=== PATIENT | female | born 1990 | race Caucasian/White ===

== ENCOUNTER 2016-11-15 10:09 | Day surgery (SDC) | payer MEDICAID ==
[2016-11-15] MEDS ORDERED: HYDROmorphone 0.5 MG/0.5 ML Syringe IVPUSH ONE ×2 (10:17→11:46)
[2016-11-15] MEDS ORDERED: Ondansetron 4 MG/2 ML SDV IVPUSH ONE (10:17)
[2016-11-15] MEDS ORDERED: Sodium Chloride 0.9% 1,000 ML IV SCH ×2 (10:30→11:45)
--- NOTE | 2016-11-15 11:02 | EDM.PDOC ---
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 She had some lite bleeding. The cramping was severe starting this am. Onset: Sudden Duration: Other ( This am. ) Location: Reports: Abdomen, Other ( Severe pelvic cramping. ) Associated Symptoms: Reports: Nausea/Vomiting, Other (pt had a bp of 80/60on arrival. ) Uterine Pain Score (Numeric/FACES): 10 - Related Data Allergies Allergy/AdvReac Type Severity Reaction Status Date / Time shellfish derived Allergy Anaphylactic Verified 11/15/16 10:44 Shock Home Meds: Home Meds Cyclobenzaprine HCl [Cyclobenzaprine HCl] 10 mg PO BEDTIME 03/29/15 [History] Famotidine [Take Home: Famotidine 20 MG, 3 Tab Pack] 20 mg PO DAILY PRN [History] Omeprazole Magnesium [Prilosec Otc] 20 mg PO DAILY PRN 03/29/15 [History] Past Medical History - Past Health History Medical/Surgical History: Denies Medical/Surgical History - Past Surgical History Other HEENT Surgeries/Procedures: tubes when she was a baby Social & Family History - Tobacco Use Smoking Status *Q: Current Every Day Smoker Years of Tobacco use: 9 Packs/Tins Daily: 0.5 - Alcohol Use Days Per Week of Alcohol Use: 0 - Recreational Drug Use Recreational Drug Use: No ED ROS GENERAL - Review of Systems Review Of Systems: See Below Constitutional: Reports: No Symptoms HEENT: Reports: No Symptoms Respiratory: Reports: No Symptoms Cardiovascular: Reports: No Symptoms Endocrine: Reports: No Symptoms GI/Abdominal: Reports: Abdominal Pain, Vomiting : Reports: No Symptoms, Other (pt has severe pelvic crmping. ) Musculoskeletal: Reports: No Symptoms Skin: Reports: No Symptoms ED EXAM, GI/ABD - Physical Exam Exam: See Below Text/Narrative:: pt has a missed ob with a set of twins that had a demise at 8 weeks. She had something that passed about 3 weeks ago and she is now bleeding and having severe cramping. She had an Us yesterday and today by comparison the sac is lower but not in the cervix. Exam Limited By: No Limitations General Appearance: Alert, Anxious, Severe Distress Ears: Normal TMs Nose: Normal Inspection Throat/Mouth: Normal Inspection Head: Atraumatic Neck: Normal Inspection Respiratory/Chest: No Respiratory Distress Cardiovascular: Regular Rate, Rhythm GI/Abdominal Exam: Other (pain in the lower abdoman. ) (Female) Exam: Deferred, Other (cervix remains closed. There is no visable tissue. ) Rectal (Female) Exam: Deferred Back Exam: Normal Inspection Extremities: Normal Inspection Neurological: Alert, Oriented, Normal Cognition Psychiatric: Anxious, Tearful Course - Vital Signs Last Recorded V/S: Last Vital Signs Temp 36.1 C 11/15/16 12:18 Pulse 53 L 11/15/16 12:18 Resp 16 11/15/16 12:18 BP 100/63 11/15/16 12:18 Pulse Ox 99 11/15/16 12:18 - Orders/Labs/Meds Orders: Active Orders 24 hr Category Date Time Status OB 1st Tri Sgl 1st Gest [US] Stat Exams 11/15/16 10:42 Taken RED BLOOD CELLS LP [BBK] Stat Lab 11/15/16 10:40 Received TYPE AND SCREEN [BBK] Stat Lab 11/15/16 10:40 Received Sodium Chloride 0.9% [Normal Saline] 1,000 ml Med 11/15/16 10:30 Active IV ASDIRECTED Sodium Chloride 0.9% [Normal Saline] 1,000 ml Med 11/15/16 11:45 Active IV ASDIRECTED Medication Orders Sodium Chloride (Normal Saline) 1,000 mls @ 999 mls/hr IV ASDIRECTED MIL Last Admin: 11/15/16 10:26 Dose: 999 mls/hr Sodium Chloride (Normal Saline) 1,000 mls @ 999 mls/hr IV ASDIRECTED MIL Last Admin: 11/15/16 11:53 Dose: 999 mls/hr Labs: Laboratory Tests 11/15/16 11/15/16 Range/Units 10:48 10:48 WBC 10.2 (4.5-11.0) K/uL RBC 3.96 (3.30-5.50) M/uL Hgb 12.4 (12.0-15.0) g/dL Hct 36.7 (36.0-48.0) % MCV 93 (80-98) fL MCH 31 (27-31) pg MCHC 34 (32-36) % Plt Count 222 (150-400) K/uL Neut % (Auto) 74 H (36-66) % Lymph % (Auto) 15 L (24-44) % [place] % (Auto) 9 H (2-6) % Eos % (Auto) 1 L (2-4) % Baso % (Auto) 1 (0-1) % Sodium 140 (140-148) mmol/L Potassium 3.2 L (3.6-5.2) mmol/L Chloride 106 (100-108) mmol/L Carbon Dioxide 22 (21-32) mmol/L Anion Gap 15.2 H (5.0-14.0) mmol/L BUN 6 L (7-18) mg/dL Creatinine 0.7 (0.6-1.0) mg/dL Est Cr Clr Drug Dosing 100.74 mL/min Estimated GFR (MDRD) > 60 (>60) Glucose 113 H (74-106) mg/dL Calcium 8.8 (8.5-10.1) mg/dL Total Bilirubin 0.8 (0.2-1.0) mg/dL AST 12 L (15-37) U/L ALT 11 L (12-78) U/L Alkaline Phosphatase 41 L (46-116) U/L Total Protein 7.0 (6.4-8.2) g/dL Albumin 3.8 (3.4-5.0) g/dL Globulin 3.2 (2.3-3.5) g/dL Albumin/Globulin Ratio 1.2 (1.2-2.2) Meds: Medications Generic Name Dose Route Start Last Admin Trade Name Freq PRN Reason Stop Dose Admin Sodium Chloride 1,000 mls @ 999 mls/hr 11/15/16 10:30 11/15/16 10:26 Normal Saline IV 999 mls/hr ASDIRECTED MIL Administration Sodium Chloride 1,000 mls @ 999 mls/hr 11/15/16 11:45 11/15/16 11:53 Normal Saline IV 999 mls/hr ASDIRECTED IML Administration Discontinued Medications Generic Name Dose Route Start Last Admin Trade Name Freq PRN Reason Stop Dose Admin Hydromorphone HCl 0.5 mg 11/15/16 10:17 11/15/16 10:27 Dilaudid IVPUSH 11/15/16 10:18 0.5 mg ONETIME ONE Administration Hydromorphone HCl 0.5 mg 11/15/16 11:46 11/15/16 11:53 Dilaudid IVPUSH 11/15/16 11:47 0.5 mg ONETIME ONE Administration Ondansetron HCl 4 mg 11/15/16 10:17 11/15/16 10:27 Zofran IVPUSH 11/15/16 10:18 4 mg ONETIME ONE Administration - Re-Assessments/Exams Free Text/Narrative Re-Assessment/Exam: 11/15/16 11:56 Pt has a normal hg. Her other labs are normal. 11/15/16 12:10 She is a rh pos. Dr Covington was called and he will come and see pt. If indicated he will plan o do a D and c. Departure - Departure Time of Disposition: 12:37 Disposition: Admitted As Inpatient 66 Condition: Fair Clinical Impression: Missed with demise before 20 completed weeks of gestation - Discharge Information - My Orders Last 24 Hours: My Active Orders 11/15/16 10:30 Sodium Chloride 0.9% [Normal Saline] 1,000 ml IV ASDIRECTED 11/15/16 10:40 RED BLOOD CELLS LP [BBK] Stat TYPE AND SCREEN [BBK] Stat 11/15/16 10:42 OB 1st Tri Sgl 1st Gest [US] Stat 11/15/16 11:45 Sodium Chloride 0.9% [Normal Saline] 1,000 ml IV ASDIRECTED - Assessment/Plan Last 24 Hours: My Active Orders 11/15/16 10:30 Sodium Chloride 0.9% [Normal Saline] 1,000 ml IV ASDIRECTED 11/15/16 10:40 RED BLOOD CELLS LP [BBK] Stat TYPE AND SCREEN [BBK] Stat 11/15/16 10:42 OB 1st Tri Sgl 1st Gest [US] Stat 11/15/16 11:45 Sodium Chloride 0.9% [Normal Saline] 1,000 ml IV ASDIRECTED
--- NOTE | 2016-11-15 12:56 | US ---
OB ultrasound Comparison: Previous day. There continues to be a gestational sac with an irregular contour. The sac is demonstrated lower wit hin the endometrial cavity. There is a pole remnant. Impression: 1. Nonliving gestation. Impending spontaneous .
[2016-11-15] MEDS ORDERED: Oxytocin 10 Units/1 ML SDV ONE (13:43)
[2016-11-15] MEDS ORDERED: Bupivacaine 0.25% 10 ML SDV ONE (13:57)
[2016-11-15] MEDS ORDERED: Ondansetron 4 MG/2 ML SDV ONE (14:06)
[2016-11-15] MEDS ORDERED: Dexamethasone 4 MG/ML SDV ONE (14:06)
[2016-11-15] MEDS ORDERED: Propofol 200 MG/20 ML SDV ONE (14:06)
[2016-11-15] MEDS ORDERED: fentaNYL 100 MCG/2 ML SDV ONE (14:06)
[2016-11-15] MEDS ORDERED: Sodium Chloride 0.9% 10 ML ONE (14:07)
[2016-11-15] MEDS ORDERED: ceFAZolin 1 GM Vial ONE (14:07)
[2016-11-15] MEDS ORDERED: Glycopyrrolate 0.2 MG/ML 2 ML SDV ONE (14:34)
[2016-11-15 15:57] VITALS: BP 110/62
== END 2016-11-15 16:10 | disposition home or self-care (01) ==
LOC: JP.ED 10:09 → JP.SDS 12:06
PROVIDERS: ATTEND Obstetrics & Gynecology
DX: O03.4 Incomplete spontaneous abortion without complication (principal); Z91.013 Allergy to seafood; Z79.899 Other long term (current) drug therapy; F17.210 Nicotine dependence, cigarettes, uncomplicated; Z98.890 Other specified postprocedural states
CPT/HCPCS: 36415; 59812; 76801; 80053; 85025; 86850; 86900; 86901; 86920; 86922; 96361; 96374; 96375; 96376; 99285; J0690; J1100; J1170; J2405; J2590; J2704; J3010; J7040; J7050; 88305; J3490

== ENCOUNTER 2018-12-15 14:11 | Emergency (ER) | payer MEDICAID ==
--- NOTE | 2018-12-15 16:53 | EDM.PDOC ---
ED HPI GENERAL MEDICAL PROBLEM - General Chief Complaint: ENT Problem Stated Complaint: SWOLLEN LIPS, THROAT FEELS FUNNY Time Seen by Provider: 12/15/18 15:42 Source of Information: Reports: Patient, RN Notes Reviewed History Limitations: Reports: No Limitations - History of Present Illness INITIAL COMMENTS - FREE TEXT/NARRATIVE: 28-year-old female presents emergency department today complaint of swollen lips and scratchy throat, this happened earlier in the day after she awoke this morning at this time HER symptoms not resolve she did take Benadryl at home. 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 - Infectious Disease History Infectious Disease History: Reports: C-Difficile - Past Surgical History Other HEENT Surgeries/Procedures: tubes when she was a baby Social & Family History - Family History Family Medical History: Noncontributory - Tobacco Use Smoking Status *Q: Current Every Day Smoker Years of Tobacco use: 12 Packs/Tins Daily: 0.5 - Caffeine Use Caffeine Use: Reports: Energy Drinks, Soda - Recreational Drug Use Recreational Drug Use: No ED ROS ENT - Review of Systems Review Of Systems: See Below Constitutional: Reports: No Symptoms HEENT: Reports: Throat Swelling, Other (Lip swelling) Respiratory: Reports: No Symptoms Cardiovascular: Reports: No Symptoms GI/Abdominal: Reports: No Symptoms ED EXAM, ENT - Physical Exam Exam: See Below Exam Limited By: No Limitations General Appearance: Alert, WD/WN, No Apparent Distress Mouth/Throat: Normal Inspection, Normal Gums, Normal Lips, Normal Oropharynx, Normal Teeth Neck: Normal Inspection, Supple, Non-Tender, Full Range of Motion Respiratory/Chest: No Respiratory Distress, Lungs Clear, Normal Breath Sounds, No Accessory Muscle Use, Chest Non-Tender Cardiovascular: No Murmur Course - Vital Signs Last Recorded V/S: Last Vital Signs Temp 96.4 F 12/15/18 15:38 Pulse 76 12/15/18 15:38 Resp 12 12/15/18 15:38 BP 105/67 12/15/18 15:38 Pulse Ox 100 12/15/18 15:26 Departure - Departure Time of Disposition: 16:52 Disposition: Home, Self-Care 01 Condition: Good Clinical Impression: Allergic reaction Qualifiers: Encounter type: initial encounter Qualified Code(s): T78.40XA - Allergy, unspecified, initial encounter - Discharge Information Referrals: Reuben Griggs MD [Primary Care Provider] - Additional Instructions: Continue to use Benadryl as needed for symptomatically relief, Please followup with your primary care provider in 3-5 days if not better, please call return to the emergency department with worsening of symptoms. - Assessment/Plan Plan: Assessment Acuity = acute Site and laterality = allergic reaction Etiology = unknown etiology] Manifestations = none Location of injury = Home Lab values = [none Plan Continue using Benadryl as needed for symptomatic relief follow-up primary care 3-5 days if no improvement This note was dictated using [employer] voice recognition software please call with any questions on syntax or grammar.
[2018-12-15 17:03] VITALS: BP 101/65
== END 2018-12-15 17:03 | disposition home or self-care (01) ==
LOC: JP.ED 14:11
DX: T78.40XA Allergy, unspecified, initial encounter (principal); F17.210 Nicotine dependence, cigarettes, uncomplicated; Z91.013 Allergy to seafood
CPT/HCPCS: 99283

== ENCOUNTER 2019-02-02 15:25 | Emergency (ER) | payer MEDICAID ==
[2019-02-02 15:57] VITALS: BP 111/70; PULSE 66
--- NOTE | 2019-02-02 16:24 | EDM.PDOC ---
ED HPI GENERAL MEDICAL PROBLEM - General Chief Complaint: General Stated Complaint: LIGHT HEADED, COLD CHILLS Time Seen by Provider: 02/02/19 15:50 Source of Information: Reports: Patient History Limitations: Reports: No Limitations - History of Present Illness INITIAL COMMENTS - FREE TEXT/NARRATIVE: 28 yo female presents to the ER with 6 days of nasal congestion, facial pressure and sore throat. This afternoon woke with fever and chills. 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 - Infectious Disease History Infectious Disease History: Reports: C-Difficile - Past Surgical History Other HEENT Surgeries/Procedures: tubes when she was a baby Social & Family History - Family History Family Medical History: Noncontributory - Tobacco Use Smoking Status *Q: Current Every Day Smoker Years of Tobacco use: 10 Packs/Tins Daily: 0.5 - Caffeine Use Caffeine Use: Reports: Energy Drinks, Soda ED ROS GENERAL - Review of Systems Review Of Systems: See Below Constitutional: Reports: Fever, Fatigue HEENT: Reports: Sinus Problem Respiratory: Reports: Cough. Denies: Shortness of Breath, Wheezing Cardiovascular: Denies: Chest Pain GI/Abdominal: Denies: Abdominal Pain ED EXAM, GENERAL - Physical Exam Exam: See Below Exam Limited By: No Limitations General Appearance: Alert, WD/WN, No Apparent Distress Eye Exam: Bilateral Eye: PERRL Ears: Normal External Exam, Normal Canal, Hearing Grossly Normal, Normal TMs Nose: No Blood, Clear Rhinorrhea Throat/Mouth: Normal Teeth, Normal Gums, Inflammation. No: Dysphagia Head: Atraumatic, Normocephalic Respiratory/Chest: No Respiratory Distress, Lungs Clear, Normal Breath Sounds, No Accessory Muscle Use, Chest Non-Tender Cardiovascular: Normal Peripheral Pulses, Regular Rate, Rhythm, No Edema GI/Abdominal: Normal Bowel Sounds, Soft, Non-Tender Neurological: Alert, Oriented Psychiatric: Normal Affect, Normal Mood Skin Exam: Warm, Dry, Intact, Normal Color, No Rash Course - Vital Signs Last Recorded V/S: Last Vital Signs Temp 36.9 C 02/02/19 15:56 Pulse 66 02/02/19 15:56 Resp 14 02/02/19 15:56 BP 111/70 02/02/19 15:56 Pulse Ox 97 02/02/19 15:56 Departure - Departure Time of Disposition: 16:23 Disposition: Home, Self-Care 01 Condition: Good Clinical Impression: Sinusitis, acute Qualifiers: Sinusitis location: unspecified location Recurrence: non-recurrent Qualified Code(s): J01.90 - Acute sinusitis, unspecified - Discharge Information *PRESCRIPTION DRUG MONITORING PROGRAM REVIEWED*: Not Applicable *COPY OF PRESCRIPTION DRUG MONITORING REPORT IN PATIENT HILDA: Not Applicable Instructions: Sinusitis, Adult, [id number] Referrals: Reuben Griggs MD [Primary Care Provider] - Additional Instructions: augmentin 500 mg twice daily for 5 days increase fluid intake with goal of 2 liters per day rest
== END 2019-02-02 16:34 | disposition home or self-care (01) ==
LOC: JP.ED 15:25
DX: J01.90 Acute sinusitis, unspecified (principal); F17.210 Nicotine dependence, cigarettes, uncomplicated; Z91.013 Allergy to seafood
CPT/HCPCS: 99283

== ENCOUNTER 2019-03-30 14:55 | Emergency (ER) | payer MEDICAID ==
[2019-03-30 15:09] VITALS: BP 106/58; PULSE 73
--- NOTE | 2019-03-30 15:42 | EDM.PDOC ---
ED HPI GENERAL MEDICAL PROBLEM - General Chief Complaint: Gastrointestinal Problem Stated Complaint: BLOOD IN VOMIT Time Seen by Provider: 03/30/19 15:15 Source of Information: Reports: Patient History Limitations: Reports: No Limitations - History of Present Illness INITIAL COMMENTS - FREE TEXT/NARRATIVE: 28-year-old female with chronic acid reflux has had intermittent nausea for the past 5 days. Today she woke up for work and was about ready to go and became fairly nauseated and had one emesis that looked red. She was concerned she may be vomiting blood so came in. She has no significant pain, no diarrhea, no dark stools. 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 - Infectious Disease History Infectious Disease History: Reports: C-Difficile - Past Surgical History Other HEENT Surgeries/Procedures: tubes when she was a baby Social & Family History - Family History Family Medical History: Noncontributory - Tobacco Use Smoking Status *Q: Current Every Day Smoker Years of Tobacco use: 14 Packs/Tins Daily: 0.5 - Caffeine Use Caffeine Use: Reports: Coffee - Recreational Drug Use Recreational Drug Use: No ED ROS GENERAL - Review of Systems Review Of Systems: See Below Constitutional: Reports: Malaise. Denies: Fever, Chills HEENT: Denies: Throat Pain Respiratory: Denies: Shortness of Breath, Cough Cardiovascular: Denies: Chest Pain GI/Abdominal: Reports: Hematemesis, Nausea, Vomiting. Denies: Abdominal Pain : Reports: No Symptoms Skin: Reports: No Symptoms Neurological: Denies: Headache Psychiatric: Reports: No Symptoms Hematologic/Lymphatic: Denies: Anemia Free Text/Narrative/Comment: Denies the possibility of being , she is not sexually active at this time. ED EXAM, GENERAL - Physical Exam Exam: See Below Exam Limited By: No Limitations General Appearance: Alert, No Apparent Distress Eye Exam: Bilateral Eye: Normal Inspection Head: Atraumatic Respiratory/Chest: No Respiratory Distress, Lungs Clear Cardiovascular: Regular Rate, Rhythm. No: Tachycardia GI/Abdominal: Normal Bowel Sounds, Soft, Non-Tender Neurological: Alert, Oriented Psychiatric: Normal Affect, Normal Mood Skin Exam: Warm, Dry Course - Vital Signs Last Recorded V/S: Last Vital Signs Temp 98.5 F 03/30/19 15:19 Pulse 73 03/30/19 15:19 Resp 18 03/30/19 15:19 BP 106/58 L 03/30/19 15:19 Pulse Ox 99 03/30/19 15:19 - Orders/Labs/Meds Labs: Laboratory Tests 03/30/19 03/30/19 Range/Units 15:47 15:47 WBC 6.7 (4.5-11.0) K/uL RBC 4.47 (3.30-5.50) M/uL Hgb 13.8 (12.0-15.0) g/dL Hct 41.5 (36.0-48.0) % MCV 93 (80-98) fL MCH 31 (27-31) pg MCHC 33 (32-36) % Plt Count 295 (150-400) K/uL Neut % (Auto) 51 (36-66) % Lymph % (Auto) 33 (24-44) % [place] % (Auto) 12 H (2-6) % Eos % (Auto) 3 (2-4) % Baso % (Auto) 0 (0-1) % Sodium 138 L (140-148) mmol/L Potassium 4.1 (3.6-5.2) mmol/L Chloride 103 (100-108) mmol/L Carbon Dioxide 25 (21-32) mmol/L Anion Gap 14.1 H (5.0-14.0) mmol/L BUN 13 D (7-18) mg/dL Creatinine 0.7 (0.6-1.0) mg/dL Est Cr Clr Drug Dosing 90.10 mL/min Estimated GFR (MDRD) > 60 (>60) Glucose 110 H (74-106) mg/dL Calcium 9.0 (8.5-10.1) mg/dL Total Bilirubin 0.5 (0.2-1.0) mg/dL AST 15 (15-37) U/L ALT 20 D (12-78) U/L Alkaline Phosphatase 52 (46-116) U/L Total Protein 7.5 (6.4-8.2) g/dL Albumin 4.2 (3.4-5.0) g/dL Globulin 3.3 (2.3-3.5) g/dL Albumin/Globulin Ratio 1.3 (1.2-2.2) Lipase 108 (73-393) U/L - Re-Assessments/Exams Free Text/Narrative Re-Assessment/Exam: 03/30/19 15:41 Physical exam is negative, CBC CMP and lipase were obtained. 03/30/19 16:24 Patient was in the emergency room for an hour and showed no signs of emesis or nausea. Her labs are all normal. She was offered some Zofran but states she did not "think she needed it". She will recheck in the next several days if she develops dark stools or continues to throw up what appears to be blood or develops any other concerns. Departure - Departure Time of Disposition: 16:35 Disposition: Home, Self-Care 01 Clinical Impression: Nausea & vomiting Qualifiers: Vomiting type: unspecified Vomiting Intractability: non-intractable Qualified Code(s): R11.2 - Nausea with vomiting, unspecified - Discharge Information Instructions: Nausea and Vomiting, Adult Referrals: PCP,None [Primary Care Provider] - Forms: ED Department Discharge Care Plan Goals: Increase diet and activity as tolerated. Return for recheck if nausea and vomiting persists especially if you appear to be throwing up blood. Also recheck if you develop dark stools.
== END 2019-03-30 16:35 | disposition home or self-care (01) ==
LOC: JP.ED 14:55
DX: R11.2 Nausea with vomiting, unspecified (principal); F17.210 Nicotine dependence, cigarettes, uncomplicated; Z91.013 Allergy to seafood
CPT/HCPCS: 36415; 80053; 83690; 85025; 99283

== ENCOUNTER 2019-08-14 21:50 | Emergency (ER) | payer MEDICAID ==
[2019-08-14 22:02] VITALS: BP 107/70; PULSE 86
--- NOTE | 2019-08-14 22:39 | EDM.PDOC ---
ED HPI GENERAL MEDICAL PROBLEM - General Chief Complaint: Lower Extremity Injury/Pain Stated Complaint: INJURED LEFT FOOT Time Seen by Provider: 08/14/19 22:30 Source of Information: Reports: Patient, RN Notes Reviewed History Limitations: Reports: No Limitations - History of Present Illness INITIAL COMMENTS - FREE TEXT/NARRATIVE: 28-year-old female presents emergency department with a complaint of pain in her left foot unfortunately she dropped a piano on the distal aspect of her foot encompassing digits 3 4 and 5, she does have pain with ambulation she does have bruising injury happened approximately 2 hours prior, complains of numbness and tingling in the distal aspect of the toes difficult for her to move digits 3 4 and 5 secondary to pain 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 Left Foot Pain Score (Numeric/FACES): 8 - Related Data Allergies Allergy/AdvReac Type Severity Reaction Status Date / Time shellfish derived Allergy Severe Anaphylactic Verified 08/14/19 22:15 Shock Penicillins Allergy Airway Verified 08/14/19 22:15 Tightness Home Meds: Home Meds diphenhydrAMINE [Benadryl] 25 mg PO BID PRN 08/14/19 [History] Past Medical History HEENT History: Reports: Allergic Rhinitis Gastrointestinal History: Reports: Other (See Below) Other Gastrointestinal History: acid reflux 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 Musculoskeletal History: Reports: Fracture Neurological History: Reports: Migraines - Infectious Disease History Infectious Disease History: Reports: Chicken Pox - Past Surgical History HEENT Surgical History: Reports: Myringotomy w Tube(s), Other (See Below) Other HEENT Surgeries/Procedures: tubes when she was a baby Female Surgical History: Reports: D&C Social & Family History - Family History Family Medical History: Noncontributory - Tobacco Use Smoking Status *Q: Current Every Day Smoker Years of Tobacco use: 14 Packs/Tins Daily: 0.4 - Caffeine Use Caffeine Use: Reports: Coffee - Recreational Drug Use Recreational Drug Use: No Review of Systems - Review of Systems Review Of Systems: See Below Musculoskeletal: Reports: Foot Pain Skin: Reports: Bruising ED EXAM, GENERAL - Physical Exam Exam: See Below Free Text/Narrative:: Examination the left foot I do appreciate some bruising over the metatarsals 3 4 and 5 there is some deformity noted as well very tender to the touch she states she has no movement in digits 3 4 and 5 she can slightly move digit #1 she states she has no sensation in digits 3 4 and 5 but has sensation in digit # 1 Exam Limited By: No Limitations General Appearance: Alert, WD/WN, No Apparent Distress Course - Vital Signs Last Recorded V/S: Last Vital Signs Temp 99.0 F 08/14/19 22:17 Pulse 86 08/14/19 22:17 Resp 16 08/14/19 22:17 BP 107/70 08/14/19 22:17 Pulse Ox 99 08/14/19 22:17 - Orders/Labs/Meds Orders: Active Orders 24 hr Category Date Time Status Foot Comp Min 3V Lt [CR] Stat Exams 08/14/19 22:32 Taken Departure - Departure Time of Disposition: 23:29 Disposition: Home, Self-Care 01 Condition: Fair Clinical Impression: Contusion of left foot Qualifiers: Encounter type: initial encounter Qualified Code(s): S90.32XA - Contusion of left foot, initial encounter - Discharge Information Instructions: Foot Contusion, [id number] Referrals: PCP,None [Primary Care Provider] - Forms: ED Department Discharge Additional Instructions: Use ibuprofen for baseline pain control use hydrocodone for breakthrough pain, please followup with your primary care provider in 3-5 days if not better, please call return to the emergency department with worsening of symptoms. Sepsis Event Note - Evaluation Sepsis Screening Result: No Definite Risk - Focused Exam Vital Signs: Vital Signs Temp Pulse Resp BP Pulse Ox 08/14/19 22:17 99.0 F 86 16 107/70 99 08/14/19 22:00 99.0 F 86 16 107/70 99 Date Exam was Performed: 08/14/19 Time Exam was Performed: 23:27 - My Orders Last 24 Hours: My Active Orders 08/14/19 22:32 Foot Comp Min 3V Lt [CR] Stat - Assessment/Plan Last 24 Hours: My Active Orders 08/14/19 22:32 Foot Comp Min 3V Lt [CR] Stat Plan: Assessment Acuity = acute Site and laterality = contusion left foot Etiology = secondary to trauma Manifestations = none Location of injury = Home Lab values = foot x-ray I did review films myself I cannot appreciate any acute process, the official read from radiology is pending Plan I did review films with her we will contact her if the radiology read differs from what she has been told she is placed in a walking boot for comfort hydrocodone 5/325 1 tab p.o. 3 times daily PRN total #10 provided for pain control follow-up primary care 3 to 5 days if no improvement This note was dictated using [email or web address] recognition software please call with any questions on syntax or grammar.
--- NOTE | 2019-08-15 11:17 | CR ---
Foot Comp Min 3V Lt CLINICAL HISTORY: Pain FINDINGS: There is no acute fracture or dislocation within the foot. No destructive changes are present. IMPRESSION: No acute bony process.
== END 2019-08-14 23:45 | disposition home or self-care (01) ==
LOC: JP.ED 21:50
DX: S90.32XA Contusion of left foot, initial encounter (principal); Z88.0 Allergy status to penicillin; Z91.013 Allergy to seafood; F17.210 Nicotine dependence, cigarettes, uncomplicated; X58.XXXA Exposure to other specified factors, initial encounter
CPT/HCPCS: 73630-26-LT; 73630-LT; 99283-25

== ENCOUNTER 2019-09-30 16:49 | Emergency (ER) | payer MEDICAID ==
[2019-09-30 17:25] VITALS: BP 109/64; PULSE 77
--- NOTE | 2019-09-30 18:18 | EDM.PDOC ---
ED HPI GENERAL MEDICAL PROBLEM - General Chief Complaint: Respiratory Problem Time Seen by Provider: 09/30/19 17:30 Source of Information: Reports: Patient History Limitations: Reports: No Limitations - History of Present Illness INITIAL COMMENTS - FREE TEXT/NARRATIVE: 29-year-old female with bronchitis-like symptoms for the past week, cough is becoming more productive and she is running intermittent fevers. She was checked for COVID-19 and it was negative. She is a smoker. Onset: Gradual Duration: Day(s): (Symptoms for the last 7 days) Associated Symptoms: Reports: Cough, Fever/Chills, Malaise. Denies: Chest Pain - Related Data Allergies Allergy/AdvReac Type Severity Reaction Status Date / Time shellfish derived Allergy Severe Anaphylactic Verified 09/30/19 17:25 Shock Penicillins Allergy Airway Verified 09/30/19 17:25 Tightness Home Meds: Home Meds diphenhydrAMINE [Benadryl] 25 mg PO BID PRN 08/14/19 [History] Omeprazole Magnesium [Prilosec Otc] 20 mg PO DAILY 09/30/19 [History] Past Medical History - Past Health History Medical/Surgical History: Denies Medical/Surgical History HEENT History: Reports: Allergic Rhinitis Gastrointestinal History: Reports: GERD, Other (See Below) Other Gastrointestinal History: acid reflux 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 Musculoskeletal History: Reports: Fracture Neurological History: Reports: Migraines - Infectious Disease History Infectious Disease History: Reports: Chicken Pox - Past Surgical History HEENT Surgical History: Reports: Myringotomy w Tube(s), Other (See Below) Other HEENT Surgeries/Procedures: tubes when she was a baby Female Surgical History: Reports: D&C Social & Family History - Family History Family Medical History: Noncontributory - Tobacco Use Smoking Status *Q: Current Every Day Smoker Years of Tobacco use: 15 Packs/Tins Daily: 0.5 - Caffeine Use Caffeine Use: Reports: Coffee - Recreational Drug Use Recreational Drug Use: No ED ROS GENERAL - Review of Systems Review Of Systems: See Below Constitutional: Reports: Fever, Chills, Malaise HEENT: Denies: Throat Pain Respiratory: Reports: Cough, Sputum. Denies: Shortness of Breath Cardiovascular: Denies: Chest Pain GI/Abdominal: Denies: Nausea, Vomiting Skin: Reports: No Symptoms Neurological: Denies: Headache Psychiatric: Reports: No Symptoms ED EXAM, GENERAL - Physical Exam Exam: See Below Exam Limited By: No Limitations General Appearance: Alert, No Apparent Distress Head: Atraumatic Neck: Normal Inspection Respiratory/Chest: No Respiratory Distress, Lungs Clear Cardiovascular: Regular Rate, Rhythm Neurological: Alert, Oriented Psychiatric: Normal Affect, Normal Mood Skin Exam: Warm, Dry Course - Vital Signs Last Recorded V/S: Last Vital Signs Temp 97.7 F 09/30/19 17:25 Pulse 77 09/30/19 17:25 Resp 16 09/30/19 17:25 BP 109/64 09/30/19 17:25 Pulse Ox 100 09/30/19 17:25 - Re-Assessments/Exams Free Text/Narrative Re-Assessment/Exam: 09/30/19 18:50 Patient will be covered for atypical bronchitis with a course of Zithromax, and will be off work until symptoms resolve. She can return if worsening despite treatment. Departure - Departure Time of Disposition: 18:25 Disposition: Home, Self-Care 01 Clinical Impression: Bronchitis - Discharge Information Instructions: Acute Bronchitis, Adult, [id number] Referrals: Reuben Griggs MD [Primary Care Provider] - Forms: ED Department Discharge Care Plan Goals: Take Zithromax for 5 days as prescribed, rest fluids and increase activity as tolerated. Return if worsening despite treatment. Sepsis Event Note - Evaluation Sepsis Screening Result: No Definite Risk - Focused Exam Vital Signs: Vital Signs Temp Pulse Resp BP Pulse Ox 09/30/19 17:25 97.7 F 77 16 109/64 100 09/30/19 17:23 97.7 F 77 16 109/64 100 Date Exam was Performed: 09/30/19 Time Exam was Performed: 18:49
== END 2019-09-30 18:25 | disposition home or self-care (01) ==
LOC: JP.ED 16:49
DX: J40 Bronchitis, not specified as acute or chronic (principal); Z79.899 Other long term (current) drug therapy; K21.9 Gastro-esophageal reflux disease without esophagitis; F17.210 Nicotine dependence, cigarettes, uncomplicated; Z91.013 Allergy to seafood; Z88.0 Allergy status to penicillin
CPT/HCPCS: 99283

== ENCOUNTER 2021-03-02 22:06 | Emergency (ER) | payer MEDICAID ==
[2021-03-02 22:31] VITALS: BP 116/59; PULSE 73
--- NOTE | 2021-03-02 22:32 | EDM.PDOC ---
ED HPI GENERAL MEDICAL PROBLEM - General Chief Complaint: ENT Problem Stated Complaint: L EAR PAIN Time Seen by Provider: 03/02/21 22:22 Source of Information: Reports: Patient History Limitations: Reports: No Limitations - History of Present Illness INITIAL COMMENTS - FREE TEXT/NARRATIVE: Rochelle is a 30-year-old female presenting to the ED for evaluation of left ear pain and bloody discharge. She had acute onset of ear pain around 1900 hrs. tonight and went to bed around 2100 hrs. She woke up at 2200 hrs. with the sensation of a pop in her ear and blood coming from the ear canal. She has been dealing with some nasal congestion and rhinorrhea. He denies any fever, chills, sore throat, difficulty swallowing, shortness of breath or cough, nausea or vomiting. She does have a slight headache. She does have nasal congestion. Left Ear Pain Score (Numeric/FACES): 8 - Related Data Allergies Allergy/AdvReac Type Severity Reaction Status Date / Time shellfish derived Allergy Severe Anaphylactic Verified 03/02/21 22:17 Shock Penicillins Allergy Airway Verified 03/02/21 22:17 Tightness Home Meds: Home Meds Omeprazole Magnesium [Prilosec Otc] 20 mg PO ASDIRECTED PRN 09/30/19 [History] Doxepin HCl [Doxepin] 10 mg PO ASDIRECTED 03/02/21 [History] medroxyPROGESTERone Acetate [Medroxyprogesterone Acetate] 1 tab PO ASDIRECTED 03/02/21 [History] Past Medical History - Past Health History Medical/Surgical History: Denies Medical/Surgical History HEENT History: Reports: Allergic Rhinitis Gastrointestinal History: Reports: GERD, Other (See Below) Other Gastrointestinal History: acid reflux 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 Musculoskeletal History: Reports: Fracture Neurological History: Reports: Migraines - Infectious Disease History Infectious Disease History: Reports: Chicken Pox - Past Surgical History HEENT Surgical History: Reports: Myringotomy w Tube(s), Other (See Below) Other HEENT Surgeries/Procedures: tubes when she was a baby Female Surgical History: Reports: D&C Social & Family History - Family History Family Medical History: No Pertinent Family History - Caffeine Use Caffeine Use: Reports: Coffee ED ROS ENT - Review of Systems Review Of Systems: See Below Constitutional: Reports: No Symptoms HEENT: Reports: Ear Discharge (Left ear bloody discharge), Ear Pain (Left ear), Rhinitis, Sinus Problem Respiratory: Reports: No Symptoms Cardiovascular: Reports: No Symptoms Endocrine: Reports: No Symptoms GI/Abdominal: Reports: No Symptoms : Reports: No Symptoms Musculoskeletal: Reports: No Symptoms Skin: Reports: No Symptoms Neurological: Reports: Headache (Mild) Psychiatric: Reports: No Symptoms Hematologic/Lymphatic: Reports: No Symptoms Immunologic: Reports: No Symptoms ED EXAM, ENT - Physical Exam Exam: See Below Exam Limited By: No Limitations General Appearance: Alert, Mild Distress Eye Exam: Bilateral Eye: EOMI, PERRL Ears: Canal Blood, Canal Swelling, TM Fluid (Right), TM Perforation (Left) Nose: Nasal Discharge, Nasal Swelling Mouth/Throat: Normal Inspection, Normal Gums Head: Atraumatic, Normocephalic Neck: Normal Inspection, Supple. No: Lymphadenopathy (R), Lymphadenopathy (L) Course - Re-Assessments/Exams Free Text/Narrative Re-Assessment/Exam: 03/02/21 22:29 Rochelle has bilateral otic effusions with a left ruptured tympanic membrane that is now bleeding. She also has substantial swelling of the ear canal consistent with an otitis externa. We will put her on polymyxin otic drops for the otitis externa and azithromycin Z-Omar for the otitis media. I also encouraged her to get a decongestant of choice to reduce inflammation in her nose and allow the eustachian tubes to function properly. At this time she is suitable for discharge home in satisfactory condition. Indications return were discussed. Departure - Departure Time of Disposition: 22:30 Disposition: Home, Self-Care 01 Clinical Impression: Acute otitis media of left ear with perforation Left otitis externa Qualifiers: Otitis externa type: other infective Chronicity: acute Qualified Code(s): H60.392 - Other infective otitis externa, left ear Eustachian tube dysfunction Qualifiers: Laterality: bilateral Qualified Code(s): H69.83 - Other specified disorders of Eustachian tube, bilateral - Discharge Information Instructions: Eustachian Tube Dysfunction, Eardrum Rupture, [id number], Otitis Externa, [id number], Otitis Media, Adult, [id number] Referrals: Reuben Griggs MD [Primary Care Provider] - Care Plan Goals: We will put you on azithromycin for the otitis media and polymyxin otic for the otitis externa. Please use as directed. These have been sent out to the [facility] to start tonight. - Problem List & Annotations (1) Acute otitis media of left ear with perforation SNOMED Code(s): 836982037, 5587098407544720 Code(s): H66.92 - OTITIS MEDIA, UNSPECIFIED, LEFT EAR; H72.92 - UNSPECIFIED PERFORATION OF TYMPANIC MEMBRANE, LEFT EAR Status: Acute Priority: Low Current Visit: Yes (2) Eustachian tube dysfunction SNOMED Code(s): 19838292 Code(s): H69.80 - OTH DISRD OF EUSTACHIAN TUBE, UNSPECIFIED EAR Status: Acute Priority: Low Current Visit: Yes Qualifiers: Laterality: bilateral Qualified Code(s): H69.83 - Other specified disorders of Eustachian tube, bilateral (3) Left otitis externa SNOMED Code(s): 8965942 Code(s): H60.92 - UNSPECIFIED OTITIS EXTERNA, LEFT EAR Status: Acute Priority: Low Current Visit: Yes Qualifiers: Otitis externa type: other infective Chronicity: acute Qualified Code(s): H60.392 - Other infective otitis externa, left ear - Problem List Review Problem List Initiated/Reviewed/Updated: Yes
== END 2021-03-02 22:43 | disposition home or self-care (01) ==
LOC: JP.ED 22:06
DX: H60.392 Other infective otitis externa, left ear (principal); H65.192 Other acute nonsuppurative otitis media, left ear; H69.83 Other specified disorders of Eustachian tube, bilateral; H72.92 Unspecified perforation of tympanic membrane, left ear; K21.9 Gastro-esophageal reflux disease without esophagitis; Z79.899 Other long term (current) drug therapy; Z88.0 Allergy status to penicillin; Z91.013 Allergy to seafood
CPT/HCPCS: 99283

== ENCOUNTER 2024-10-15 19:31 | Emergency (ER) | payer MEDICAID ==
[2024-10-15 20:18] VITALS: BP 115/70; PULSE 75
== END 2024-10-15 21:25 | disposition home or self-care (01) ==
LOC: JP.ED 19:31
DX: L23.89 Allergic contact dermatitis due to other agents (principal); Z91.013 Allergy to seafood; Z88.0 Allergy status to penicillin
CPT/HCPCS: 99282

== ENCOUNTER 2024-11-08 18:06 | Emergency (ER) | payer MEDICAID ==
[2024-11-08 18:27] VITALS: BP 118/66; PULSE 84
== END 2024-11-08 18:54 | disposition home or self-care (01) ==
LOC: JP.ED 18:06
DX: S10.86XA Insect bite of other specified part of neck, initial encounter (principal); A69.20 Lyme disease, unspecified; Z88.0 Allergy status to penicillin; Z91.013 Allergy to seafood; W57.XXXA Bitten or stung by nonvenomous insect and other nonvenomous arthropods, initial encounter
CPT/HCPCS: 99282; 99283

== ENCOUNTER 2025-02-19 10:39 | Emergency (ER) | payer MEDICAID ==
[2025-02-19 10:47] VITALS: BP 122/74; PULSE 63
== END 2025-02-19 11:10 | disposition home or self-care (01) ==
LOC: JP.ED 10:39
DX: L01.00 Impetigo, unspecified (principal); Z88.0 Allergy status to penicillin; Z91.013 Allergy to seafood
CPT/HCPCS: 99282